=== PATIENT | male | born 1960 | race Caucasian/White ===

== ENCOUNTER 2016-04-17 08:51 | Emergency (ER) | payer OTHER ==
[~2016-04-17] VITALS: Wt 76.0 kg
[~2016-04-17 08:51] MED LIST: HYDR-3498 PO; ORPH100T PO
[2016-04-17] MEDS ORDERED: traMADol 50 MG TAB PO ONE (10:00)
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
--- NOTE | 2016-04-17 10:19 | RADRPT ---
PROCEDURE: US right lower extremity veins. CLINICAL INDICATION: Right leg pain and swelling. TECHNIQUE: Multiple longitudinal and transverse images of the right lower extremity veins were obt ained with maurer scale and color Doppler imaging. The common femoral vein, femoral vein, and poplitea l vein were evaluated. 2D grayscale measurements with compression sonography, pulsed Doppler, color Doppler, and pulsed Doppler with augmentation. COMPARISON: No prior studies are available for comparison. FINDINGS: The right common femoral, femoral and popliteal veins are normally compressible throughout. Color f low demonstrates normal filling of the vessels. Normal waveforms are visualized and there is normal response to augmentation. IMPRESSION: 1. No evidence of deep vein thrombosis involving the right lower extremity. RPTAT: QQ .Jacek Rodarte MD, MD Date Time Electronically viewed and signed by .Jacek Rodarte MD, on 04/17/2016 10:19 .R/
--- NOTE | 2016-04-17 10:49 | RADRPT ---
PROCEDURE: XR femur CLINICAL INDICATION: Leg pain TECHNIQUE: AP and lateral views of the right femur COMPARISON: None available FINDINGS: No fracture or dislocation is identified. The osseous structures and adjacent joint spaces appear i ntact. There are small soft tissue calcifications adjacent to the greater trochanter. IMPRESSION: No evidence of acute osseous abnormality. Small soft tissue calcifications adjacent to the greater trochanter. RPTAT: VV .Boris Conklin MD, MD Date Time Electronically viewed and signed by .Boris Conklin MD, on 04/17/2016 10:49 .O/
[2016-04-17] MEDS ORDERED: TRAM50TA2 PO (11:01)
== END 2016-04-17 12:30 | disposition home or self-care (01) ==
LOC: FTE 08:51
DX: M79.604 Pain in right leg (principal); I10 Essential (primary) hypertension; E11.9 Type 2 diabetes mellitus without complications
CPT/HCPCS: 73550; 93971; Z7502; Z7610

== ENCOUNTER 2017-05-12 09:15 | Emergency (ER) | END 2017-05-12 13:49 | disposition home or self-care (01) ==

== ENCOUNTER 2017-12-02 12:28 | Day surgery (SDC) | END 2017-12-02 15:03 | disposition home or self-care (01) ==